=== PATIENT | female | born 1985 | race Caucasian/White ===

== ENCOUNTER → 2023-08-16 12:51 | Outpatient (CLI) | payer OTHER, SELFPAY ==
--- NOTE | ~2023-08-16 | US_ITS ---
Pelvic ultrasound. Clinical History: Pelvic pain Technique: Realtime transabdominal scanning of the pelvis was performed. Color flow Doppler and Doppl er spectral analysis were performed. Findings: The uterus is anteverted. The endometrial stripe has a thickness of 6 mm. No focal mass is identified. The right ovary measures 3.2 x 2.3 x 2.7 cm. No significant right ovarian or adnexal mass is seen. The left ovary measures 3.9 x 2.9 x 2.8 cm. No significant left ovarian or adnexal mass is seen. There is no evidence of free fluid in the cul de sac. Impression: No significant abnormality seen. Reviewed, dictated and finalized at location . ER DRIVER Impression: No significant abnormality seen.
== END ==
PROVIDERS: PCP Nurse Practitioner; Visit Provider Nurse Practitioner
DX: R10.2 Pelvic and perineal pain (principal)
CPT/HCPCS: 76856

== ENCOUNTER 2023-10-01 00:38 | Day surgery (SDC) | payer OTHER, SELFPAY ==
[2023-09-11 11:51] VITALS: BMI 47.2
--- NOTE | 2023-09-11 11:55 | PC.NURSE ---
Addendum entered by Gardenia Weber RN 09/26/23 14:27: PT TO ARRIVE AT 1245 ON 10/01/23 FOR SURGERY AT 1445. Original Note: Report to the Outpatient Waiting Room, entrance under the green pavilion located off [facility], at time 0745 on date 09/17/23. Planned Procedure Time: 0945. Time changes happen often and if your time is changed the preop area will call you the afternoon before. - You and your visitor will be asked to self-screen and do not enter if you have any COVID symptoms. - A mask is optional within the hospital at this time. Patients may have clear liquids (water, carbonated beverages, clear teas, apple juice) until 3 hours prior to surgery with a maximum of 20 ounces. - No food from midnight until time of surgery Take the following medications with a SIP of water the morning of surgery: NONE DO NOT STOP ANY OF YOUR OTHER PRESCRIPTION MEDICATIONS PRIOR TO SURGERY ?EXCEPT THE FOLLOWING Medications to discontinue per physician: N/A Date to take last dose: N/A Please no make-up, nail divehi, hairspray, perfume, deodorant, or body powder the day of surgery. No jewelry (including any body piercings) or valuables the day of surgery, leave them at home. Please take a shower or bath the night before, or the morning of, surgery with an antibacterial soap. Wear comfortable, loose fitting clothing. - Jewelry must be removed prior to entering the operating room. Rings and piercings that are not removed may be cut off. - The hospital will not accept responsibility for valuables. - Please leave all valuables, including medications, at home the day of surgery. If you are going home after surgery, a licensed route driver must drive you home. - NO public transportation without another adult if you receive anesthesia. - We recommend that an adult stay with you for 24 hours following discharge. - We also recommend that you do not drive, make important decision, drink alcoholic beverages, or take any drugs that were not prescribed by your health care provider for at least 24 hours after your discharge time. Follow any additional instructions given to you from your surgeon. If you or anyone in your household have experienced Covid symptoms in the past week, please notify your surgeon or the nurse liaison at the phone number below for possible testing. Telephone instructions given to HANDY TORRES and asked if any additional questions and then verbalized understanding. Patient advised to call surgeon office or pre surgery nurse liaison [phone] if any additional questions.
--- NOTE | 2023-09-17 07:28 | WPDHPUPDATE1 ---
History and Physical Update Update Date/Time: 09/17/23 07:28 History and Physical has been reviewed, including an updated exam of the patient. There are NO changes in the patient's condition. Risks, benefits, and alternatives have been discussed and questions answered. Patient agrees to proceed with procedure.
--- NOTE | 2023-09-17 07:28 | PM.HPGS ---
History of Present Illness History of Present Illness Consent: Risks, benefits, and alternatives have been discussed and questions answered. Patient agrees to proceed with procedure. Chief complaint: menorrhagia Narrative: The patient is a 37-year-old with heavy but regular cycles. Pelvic ultrasound and labs were normal. It was recommended to undergo D&C hysteroscopy for further evaluation. Risks of infection, bleeding, perforation, and possible pathology are discussed. Patient voices understanding and agrees to proceed. Review of Systems Review of Systems: not repeated day of surgery; patient states no changes in status [facility] Past Medical History Medical History (Updated 09/17/23 @ 07:31 by Sharlene Martin MD) Migraines PCOS (polycystic ovarian syndrome) Social History Social History Smoking status: Never smoker Alcohol intake: never Substance use: never Substance use type: does not use Living arrangements: with family Spiritual care concerns: No Meds Home Medications and Allergies Home Medications Medication Instructions Recorded Confirmed Type ergocalciferol (vitamin D2) 1,250 1,250 mcg PO 2XW 09/11/23 09/11/23 History mcg (50,000 unit) capsule metformin 500 mg tablet,extended 1,000 mg PO BID 09/11/23 09/11/23 History release 24 hr Allergies Allergy/AdvReac Type Severity Reaction Status Date / Time Penicillins AdvReac Unknown Nausea and Verified 09/11/23 11:50 Vomiting, Headaches Exam Const: General: healthy appearing, alert and obese ( BMI 47.8) Orientation/consciousness: patient oriented x3 Resp: Effort & Inspection: normal respiratory effort GI: GI Palp: Yes Soft to palpation, No Tenderness to palpation present (GI) and No Palpable mass present : External Female Exam: normal external appearance Speculum Exam - Vagina: normal appearance of the vagina and normal vaginal discharge Speculum Exam - Cervix: normal appearance of the cervix Bimanual exam- vagina & uterus: uterine size normal and consistency normal Bimanual Exam- Adnexa, other: normal adnexae and No adnexal tenderness Neuro: General: patient oriented x3 Assessment and Plan Assessment and plan (1) Menorrhagia: Code(s): N92.0 - Excessive and frequent menstruation with regular cycle Status: Acute Assessment and Plan: plan to proceed with D&C hysteroscopy
--- NOTE | 2023-09-26 14:30 | PC.NURSE ---
Pt states no changes in medications or health history since initial interview. New pre-op instructions reviewed with pt. Pt denies further questions at this time.
--- NOTE | 2023-10-01 09:11 | WPDHPUPDATE1 ---
History and Physical Update Update Date/Time: 10/01/23 09:11 History and Physical has been reviewed, including an updated exam of the patient. There are NO changes in the patient's condition. Risks, benefits, and alternatives have been discussed and questions answered. Patient agrees to proceed with procedure.
--- NOTE | 2023-10-01 09:11 | PM.HPGS ---
History of Present Illness History of Present Illness Consent: Risks, benefits, and alternatives have been discussed and questions answered. Patient agrees to proceed with procedure. Chief complaint: menorrhagia Narrative: Susy Cochran is a 37 year old female with menorrhagia. Pelvic ultrasound was normal. Labs revealed a normal hemoglobin and hematocrit. However, the patient's hemoglobin A1c was 5.9 on metformin. It was recommended to undergo D&C hysteroscopy for further evaluation. Risks of infection, bleeding, perforation, and possible pathology were discussed. Patient voices understanding and agrees to proceed. Review of Systems Review of Systems: not repeated day of surgery; patient states no changes in status PMF[facility] Past Medical History Medical History (Updated 10/01/23 @ 09:15 by Sharlene Martin MD) Migraines PCOS (polycystic ovarian syndrome) Most likely has converted to diabetes with hemoglobin A1c of 5.9 on metformin Social History Social History Smoking status: Never smoker Alcohol intake: never Substance use: never Substance use type: does not use Living arrangements: with family Spiritual care concerns: No Meds Home Medications and Allergies Home Medications Medication Instructions Recorded Confirmed Type ergocalciferol (vitamin D2) 1,250 1,250 mcg PO 2XW 09/11/23 09/26/23 History mcg (50,000 unit) capsule metformin 500 mg tablet,extended 1,000 mg PO BID 09/11/23 09/26/23 History release 24 hr Allergies Allergy/AdvReac Type Severity Reaction Status Date / Time Penicillins AdvReac Unknown Nausea and Verified 09/26/23 14:26 Vomiting, Headaches Exam Const: General: obese (BMI is 47.8) Orientation/consciousness: patient oriented x3 Resp: Effort & Inspection: normal respiratory effort : External Female Exam: normal external appearance Speculum Exam - Vagina: normal appearance of the vagina and normal vaginal discharge Speculum Exam - Cervix: normal appearance of the cervix Bimanual exam- vagina & uterus: uterine size normal and consistency normal Bimanual Exam- Adnexa, other: normal adnexae and No adnexal tenderness Neuro: General: patient oriented x3 Assessment and Plan Assessment and plan (1) Menorrhagia: Code(s): N92.0 - Excessive and frequent menstruation with regular cycle Status: Acute Assessment and Plan: plan to proceed with D&C hysteroscopy
[2023-10-01] MEDS: ACETAMINOPHEN 500 MG TABLET 1000 MG PO (12:52)
[2023-10-01 12:53] VITALS: BP 156/117; PULSE 87; RESP 20; TEMP 37.2; O2SAT 100
[2023-10-01 13:06] VITALS: BP 179/105
[2023-10-01] MEDS: LACTATED RINGERS 1,000 ML 30 ML IV CONT (13:10)
--- NOTE | 2023-10-01 13:16 | SUR.PREOP ---
1314-Dr. Ramos aware of pt's B/P readings-no orders received.
--- NOTE | 2023-10-01 13:24 | WPDANESEPPF ---
Anes - Initial Pre Proc Eval Procedure: Operation Date: 10/01/23 14:45 Proposed Procedures p Hysteroscopy Dilation and Curettage - Sharlene Martin MD Date/Time: 10/01/23 13:24 Surgeon: Sharlene Martin MD Pre Op Diagnosis: menorrhagia Patient Data Age: 37 Gender: F Height: 1.63 m Weight: 125.4 kg Last Vital Signs Temp 37.2 C 10/01/23 12:53 Pulse 87 10/01/23 12:53 Resp 20 10/01/23 12:53 BP 179/105 H 10/01/23 13:06 Pulse Ox 100 10/01/23 12:53 O2 Del Method Room Air 10/01/23 12:53 Allergies Allergy/AdvReac Type Severity Reaction Status Date / Time Penicillins AdvReac Unknown Nausea and Verified 10/01/23 12:49 Vomiting, Headaches Home Medications Medication Instructions Recorded Confirmed Type ergocalciferol (vitamin D2) 1,250 1,250 mcg PO 2XW 09/11/23 10/01/23 History mcg (50,000 unit) capsule metformin 500 mg tablet,extended 1,000 mg PO BID 09/11/23 10/01/23 History release 24 hr Patient hx anesthesia problems: none Family hx anesthesia problems: none Results Review: All pre-operative results and documents have been reviewed as part of the pre-operative evaluation. 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 with hemoglobin A1c of 5.9 on metformin Social History Social History Smoking status: Never smoker Alcohol intake: never Substance use: never Substance use type: does not use Living arrangements: with family Spiritual care concerns: No Anes - Eval Final PreProcedure Day of Procedure 10/01/23 13:24 Patient weight: morbidly obese Heart: regular rate and rhythm Lungs: clear to auscultation Airway: Mallampati scale class II Neurological: alert and oriented Last oral intake: >/= 8 hours ASA classification: III Emergent: no Anesthetic plan: proceed Anesthesia type and monitoring: general GIVS and standard monitoring Results Review: All pre-operative results and documents have been reviewed as part of the pre-operative evaluation. Informed Consent: The patient's anesthetic plan and its attendant risks and benefits were discussed with the patient/family/POA. Questions were solicited and answers provided to the satisfaction of the patient/family/POA.
[2023-10-01] MEDS: KETOROLAC 15 MG/ML VIAL (*BKC) IV PUSH (13:37)
--- NOTE | 2023-10-01 13:53 | W.PM.PROC2 ---
Procedure Note - Detailed Date of Procedure 10/01/23 Pre-op Diagnosis menorrhagia Post-op Diagnosis Same Procedure Performed D&C hysteroscopy Surgeon Sharlene Martin MD Anesthesia MAC Findings uterus sounds to 10cm and appears secretory Description of Procedure The patient is taken to the operating room and placed under anesthesia in the dorsal lithotomy position. She was prepped and draped in usual sterile fashion. [place] speculum was placed in the vagina and the cervix grasped on the anterior lip with a tenaculum. The uterus is sounded to 10cm. The diagnostic hysteroscope was placed and with no discrete lesions the hysteroscope was removed. The sharp OO curette was used to curette the endometrium until a good uterine cry was noted in all areas. All instruments are removed. Sponge, needle, and instrument counts are correct per the OR staff. The patient was awakened from anesthesia and taken to recovery in stable condition. Estimated Blood Loss 5 Drains No Packing No Pathology Yes ( Endometrial curetting) Complications No immediate complications Condition Stable Disposition PACU
[2023-10-01 13:58] VITALS: BP 166/119; PULSE 82; O2SAT 94
[2023-10-01 14:25] VITALS: BP 160/107; PULSE 81; O2SAT 99
[2023-10-01 14:55] VITALS: BP 124/81; PULSE 80
[2023-10-01 15:25] VITALS: BP 138/85; PULSE 80
== END 2023-10-01 15:45 | disposition home or self-care (01) ==
PROVIDERS: PCP Registered Nurse; Visit Provider Obstetrics & Gynecology Gynecology
PROC: 0U5B8ZZ Destruction of Endometrium, Via Natural or Artificial Opening Endoscopic (ICD-10-PCS; CPT 58563; principal; 2023-10-01 14:45)
DX: N92.0 Excessive and frequent menstruation with regular cycle (principal); N85.8 Other specified noninflammatory disorders of uterus; E28.2 Polycystic ovarian syndrome; E66.01 Morbid (severe) obesity due to excess calories; Z68.42 Body mass index [BMI] 45.0-49.9, adult; Z79.84 Long term (current) use of oral hypoglycemic drugs
CPT/HCPCS: 58558; 88305; A9270; J0360; J1100; J1885; J2250; J2405; J2704; J7120

== ENCOUNTER 2024-07-17 14:11 | Outpatient (CLI) | payer OTHER, SELFPAY ==
--- NOTE | ~2024-07-17 | US_ITS ---
EXAMINATION: US venous doppler [facility] DATE: 07/17/2024 14:48 INDICATION: Left leg pain and swelling TECHNIQUE: Grayscale ultrasound images without and with compression and Doppler ultrasound images of the left lower extremity veins were obtained. COMPARISON: None. FINDINGS: Noncompressibility and absence of flow within the left common femoral, femoral, and popliteal veins Noncompressibility and absence of flow within the left gastrocnemius vein, peroneal vein and posterio r tibial vein. Greater saphenous vein outflow is visualized IMPRESSION: Extensive left lower extremity deep venous thrombosis, as detailed above. These findings will be given to the patient's referring clinician to determine disposition Reviewed, dictated and finalized at location [facility] [employer]
== END 2024-07-17 14:12 | disposition home or self-care (01) ==
PROVIDERS: PCP Registered Nurse; Visit Provider Registered Nurse
DX: M25.472 Effusion, left ankle (principal); I82.412 Acute embolism and thrombosis of left femoral vein; I82.432 Acute embolism and thrombosis of left popliteal vein; I82.462 Acute embolism and thrombosis of left calf muscular vein; I82.452 Acute embolism and thrombosis of left peroneal vein; I82.442 Acute embolism and thrombosis of left tibial vein
CPT/HCPCS: 93971

== ENCOUNTER 2024-07-17 18:07 | Emergency (ER) | payer OTHER, SELFPAY ==
[2024-07-17 18:12] VITALS: BP 166/100; PULSE 102; RESP 16; TEMP 36.3; O2SAT 99
== END 2024-07-17 18:40 | disposition left against medical advice (07) ==
PROVIDERS: PCP Registered Nurse
DX: I74.9 Embolism and thrombosis of unspecified artery (principal)
CPT/HCPCS: 99199

== ENCOUNTER 2024-12-20 19:02 | Emergency (ER) | payer OTHER, SELFPAY ==
--- NOTE | 2024-12-20 19:03 | ED_ITS ---
HPI - Skin/Abscess/Foreign Bdy General Chief complaint: Skin/Abscess/Foreign Body Stated complaint: rash on hand Time Seen by Provider: 12/20/24 19:02 Source: patient Mode of arrival: ambulatory Limitations: no limitations History of Present Illness HPI narrative: Susy is a 39-year-old female patient presenting to the clinic today with complaints of rash on her right hand, left wrist, and on the left abdomen. She reports symptoms started yesterday. States she was cleaning out a storage shed getting some close and found wasps nest. Is unsure if she was stung but has a itchy red rash that jones when she scratches it. Related Data Home Medications ?Medication ?Instructions ?Recorded ?Confirmed ?Last Taken ?Type ergocalciferol (vitamin D2) 1,250 1,250 mcg PO 2XW 09/11/23 10/01/23 09/27/23 History mcg (50,000 unit) capsule metformin 500 mg tablet,extended 1,000 mg PO BID 09/11/23 10/01/23 09/30/23 History release 24 hr amlodipine 5 mg tablet mg 12/20/24 Unknown History apixaban 5 mg tablet (Eliquis) mg 12/20/24 Unknown History hydrochlorothiazide 25 mg tablet mg 12/20/24 Unknown History norethindrone 1 mg-ethinyl tablet 12/20/24 Unknown History estradiol 20 mcg (24)-iron 75 mg (4) tablet (Aurovela 24 Fe) Allergies Allergy/AdvReac Type Severity Reaction Status Date / Time Penicillins AdvReac Unknown Nausea and Verified 12/20/24 19:20 Vomiting, Headaches Review of Systems Review of Systems: Pertinent positives per HPI. Patient denies any fever, chills, headache, visual changes, dizziness, cough, runny nose, sore throat, shortness of breath, chest pain, palpitations, nausea, vomiting, diarrhea, constipation, abdominal pain, or any urinary issues. [facility] Past Medical History Medical History Morbid obesity PCOS (polycystic ovarian syndrome) Most likely has converted to diabetes with hemoglobin A1c of 5.9 on metformin Migraines Social History Social History Smoking status: Never smoker Alcohol intake: never Substance use: never Substance use type: does not use Living arrangements: with family Spiritual care concerns: No Comments At the time of my signature, I reviewed and agree with the nursing past medical, surgical, social, and family history. There is no relevant family history pertinent to the patient complaint. Exam Narrative: General: Well-developed, morbidly obese, in no apparent distress Head: Normocephalic, atraumatic. Cardio: Regular rate and rhythm, s1 and s2 normal, no murmur appreciated. Resp: Clear to auscultation bilaterally, no rhonchi, rales, wheezing or rubs. Integumentary: [place], warm, and dry, red, raised, itchy, scaly, blister-like rash to the right hand, left wrist, and left abdomen. Course Course Emergency Course: Portions of this record may have been created with voice recognition software. Level of Care: Express Care Visit Vital Signs Vital signs: Vital Signs Temperature 36.3 C L 12/20/24 19:12 Pulse Rate 68 12/20/24 19:12 Respiratory Rate 18 12/20/24 19:12 Blood Pressure 124/84 12/20/24 19:12 Pulse Oximetry 100 12/20/24 19:12 Oxygen Delivery Room Air 12/20/24 19:12 Temperature 36.3 C L 12/20/24 19:12 Pulse Rate 68 12/20/24 19:12 Respiratory Rate 18 12/20/24 19:12 Blood Pressure 124/84 12/20/24 19:12 Pulse Oximetry 100 12/20/24 19:12 Oxygen Delivery Room Air 12/20/24 19:12 Vital signs reviewed MDM - Skin/Abscess/Foreign Bdy MDM Narrative Medical decision making narrative: At the time of visit patient is resting comfortably on the exam table. Patient appears to be nontoxic. Plan: I suspect patient has dermatitis. Prescription for triamcinolone cream was sent to the pharmacy. Supportive measures were discussed with the patient and they voiced understanding discharge instructions and agrees to treatment plan. Return precautions reviewed Differential Diagnosis Differential diagnosis: Likely abscess of skin or subcutaneous tissue, viral exanthem, dermatophytosis, urticaria, herpes zoster, allergic reaction to drug, cellulitis, eczema, insect bites, impetigo and contact dermatitis Discharge Plan Discharge Clinical Impression: Dermatitis Patient Disposition: Home Condition: Stable Instructions: Antibiotic Form, Dermatitis (ED) Additional Instructions: Apply triamcinolone cream as directed Avoid hot showers Moisturize skin twice daily using a non scented moisturizer such as Lubriderm, Aquaphor, or Cetaphil Avoid scratching as this can cause a secondary infection May take benadryl 25-50mg every 6 hours as needed for itching Follow up with your PCP in 3-5 days if symptoms persist or sooner if they worsen Go to the Emergency Room if symptoms worsen- fever, rash spreading with treatment, shortness of breath, tongue swelling, drooling, or chest pain Patient Language: [place] Prescriptions: New triamcinolone acetonide 0.1 % cream 1 applic topical BID 7 Days Qty: 30 0RF No Action amlodipine 5 mg tablet hydrochlorothiazide 25 mg tablet Aurovela 24 Fe 1 mg-20 mcg (24)/75 mg (4) tablet Eliquis 5 mg tablet ergocalciferol (vitamin D2) 1,250 mcg (50,000 unit) capsule 1,250 mcg PO 2XW Patient Comments: PT TAKES ON SUNDAY AND SUNDAY metformin 500 mg tablet extended release 24 hr 1,000 mg PO BID Follow-up/Referrals: Imani,SADI Reeder [Primary Care Provider] - Time of Disposition: 19:21 Quality NIHSS Nursing Documentation ED NIHSS nursing documentation: reviewed/agree
--- OUTSIDE RECORDS SUMMARY | 2024-12-20 19:05 | XMS_ITS | Clinical Summary ---
Author Organization [facility] Address [address] [place] [address] Care Team Providers Care Screen Printing Loader Unloader Name Role Phone Lilli Diallo Primary Care Provider [phone] Allergies Active Allergy Reactions Criticality Noted Date Comments Penicillins Hives,Headache 05/01/2019 Medications metFORMIN ER 500 MG 24 hr tablet Take 2 tablets (1,000 mg total) by mouth 2 (two) times daily. 1 Active vitamin D2, ergocalciferol, 02381 UNITS capsule 2 Active hydroCHLOROthiazi de (HYDRODIURIL) 25 MG tabletIndications :Primary hypertension Take 1 tablet (25 mg total) by mouth every morning. 90 tablet 3 4 Active amLODIPine (NORVASC) 5 MG tabletIndications :Primary hypertension Take 1 tablet (5 mg total) by mouth daily. 90 tablet 3 4 Active tirzepatide-weigh t management (ZEPBOUND) 2.5 mg/0.5 mL injectionIndicati ons:Weight Loss Inject 2.5 mg into the skin every 7 days. Indications: Weight Loss Dispense as vial only 2 mL 5 5 Active apixaban (ELIQUIS) 5 MG tabletIndications :DVT of deep femoral vein, left ([facility] H[facility]/HCC) Take 1 tablet (5 mg) twice daily 60 tablet 1 5 Active Active Problems Problem Noted Date Diagnosed Date Acute pulmonary embolism ([facility] HHS/HCC) 07/18 Assessment & Plan (08/25/2024 3:32 PM TAX ANALYST): Continue anticoagulation and follow-up with hematology. No cardiovascular needs needed at this time. Vitamin D deficiency 10/15/2020 High blood pressure 03/23/2014 PCOS (polycystic ovarian syndrome) BMI 45.0-49.9, adult Assessment & Plan (08/25/2024 3:32 PM TAX ANALYST): She is morbidly obese with a Body mass index is 46.35 kg/m . She was educated on lifestyle modifications including diet and exercise. Immunizations Immunization Administration Dates Next Due Influenza Adult (Generic) 07/13/2022,06/21/2021 Tdap (Generic) 06/21/2021,09/01/2017 Family History Medical History Relation Comments CHF Father Hypertension Father Colon Cancer Maternal Grandfather Cancer Maternal Grandmother melanoma Hypertension Mother blood clot Mother Lung Cancer Paternal Grandfather Hypertension Sister Relation Status Comments Father Alive Maternal Grandfather Maternal Grandmother Mother Alive Paternal Grandfather Sister Alive Social History Tobacco Use Types Packs/Day Years Used Date Smoking Tobacco: Never Smokeless Tobacco: Never Tobacco Cessation:Counseling Given: Not Answered Alcohol Use Standard Drinks/Week Comments No 0 (1 standard drink = 0.6 oz pur e alcohol) [facility] Utilities Answer Date Recorded In the past 12 months has [facility] [employer], gas, oil, or water Combatant Gentlemen threatened to shut off services in your home? No 07/18/2024 Humiliation, Afraid, Rape, and Kick questionnair e Answer Date Recorded Within the last year, have y ou been afraid of your partner or ex-partner? No 07/18/2024 Within the last year, have y ou been humiliated or emotionally abused in other ways by your partner or ex-partner? No Within the last year, have y ou been kicked, hit, slapped, or otherwise physically hurt by your partner or ex-partner? No 07/18/2024 Within the last year, have y ou been raped or forced to have any kind of sexual activity by your partner or ex-partner? No 07/18/2024 AUDIT-C Answer Date Recorded Frequency of Alcohol Consumption Never 05/01/2019 Average Number of Drinks Not on file 019 Frequency of Binge Drinking Not on file 12/2018 Overall Financial Resource Strain (CARDIA) Answe r Date Recorded How hard is it for you to pa y for the very basics like food, housing, medical care, and heating? Not hard at all 07/18/2024 PHQ-2 Answer Date Recorded Patient Health Questionnaire-2 Score 2 07/17/2024 Hunger Vital Sign Answer Date Recorded Within the past 12 months, y ou worried that your food would run out before you got the money to buy more. Never true 07/18/20 24 Within the past 12 months, t he food you bought just didn't last and you didn't have money to get more. Never true 07/18/2024 PRAPARE - Transportation Answer Date Re corded In the past 12 months, has l ack of transportation kept you from medical appointments or from getting medications? No 06/28 In the past 12 months, has l ack of transportation kept you from meetings, work, or from getting things needed for daily living? No 07/18/2024 Housing Stability Vital Sign Answer Elias e Recorded In the last 12 months, was t here a time when you were not able to pay the mortgage or rent on time? No 07/18/2024 In the past 12 months, how m any times have you moved where you were living? 0 07/18/2024 At any time in the past 12 m [facility], were you homeless or living in a halfway (including now)? No 07/18/2024 Comments No Sex and Gender Information Value Date Recorded Sex Assigned at Not on file Legal Sex Female 12:13 PM TAX ANALYST Gender Identity Not on file Sexual Orientation Not on file Last Filed Vital Signs Vital Sign Reading Time Taken Comments Blood Pressure 130/86 08/15/2024 9:49 AM TAX ANALYST Pulse 98 08/15/2024 9:49 AM TAX ANALYST Temperature 36.7 C (98 F) 07/23/2024 11:18 AM TAX ANALYST Respiratory Rate 16 07/23/2024 11:18 AM TAX ANALYST Oxygen Saturation 99% 07/23/2024 11:18 AM TAX ANALYST Inhaled Oxygen Concentration - - Weight 122.5 kg (270 lb) 08/15/2024 9:49 AM TAX ANALYST Height 162.6 cm (5' 4 ) 08/15/2024 9:49 AM TAX ANALYST Body Mass Index 46.35 08/15/2024 9:49 AM TAX ANALYST Plan of Treatment Health Maintenance Due Date Last Done Comments Cervical Cancer Screening Pa p Smear (Age 30 to 64) Every 3 Years 1985 Annual Physical 1988 Hepatitis B Vaccines (1 of 3 - 19+ 3-dose series) 2004 Pneumococcal Vaccine: Pediatrics (0 to 5 Years) and At-Risk Patients (6 to 49 Years) (1 of 2 - PCV) 2004 Cervical Cancer Screening Pa p with HPV Testing (Age 30 to 64) Every 5 Years 11/08/2015 Cervical Cancer Screening with HPV 11/08/2015 PHQ-2 (Physician [place]) 08/27/2024 07/17/2024 COVID-19 Vaccine ( - 2023-2 5 season) 2025 01/17/2021, 12/15/2020 Postponed from 04/27/2024 (Patient Refused) DTaP, Tdap and Td Vaccines ( 3 - Td or Tdap) 06/21/2031 06/21/2021, 09/01/2017 Hepatitis C Completed 10/18/2020 HPV Vaccines Aged Out No longer eligi ble based on patient's age to complete this topic Meningococcal B Vaccine Aged Out No l onger eligible based on patient's age to complete this topic Meningococcal Vaccine Aged Out No mary carlitos eligible based on patient's age to complete this topic RSV Immunizations Under 20 Months Aged Out No longer eligible b ased on patient's age to complete this topic Procedures Procedure Name Priority Date/Time Associated Diagnosis Comments HEPATITIS C ANTIBODY 10/18/2020 1:14 PM TAX ANALYST from Last 3 Months or Most Recently Relevant to Health Maintenance Results * HEPATITIS C ANTIBODY (10/18/2020 1:14 PM TAX ANALYST) HEPATITIS C AB <0.1 0.0 - 0.9 s/co ratio [facility] 1 Comment: Negative: < 0.8 Indeterminate: 0.8 - 0.9 Positive: > 0.9 The CDC recommends that a positive HCV antibody result be followed up with a HCV Nucleic Acid Amplification test (450300). 10/18/2020 1:14 PM TAX ANALYST 10/18/2020 Narrative [facility] - 10/19/2020 9:10 AM TAX ANALYST Performed at: 01 - [facility] [address] [id number] Spotter Driver: Ger Skaggs PhD, Phone: [phone] [facility] Final Resul t [facility] [address] [place] [address] [facility] 1 from Last 3 Months or Most Recently Relevant to Health Maintenance Insurance CIG Advance Directives * Full Code (Latest Code Status on File) Date Activated Date Inactivated Comments 07/18/2024 1:34 AM 07/19/2024 5:11 PM Care Teams Screen Printing Loader Unloader Relationship Specialty Start Date End Date Lilli Diallo APNP [address] [place] [id number] PCP - General NURSE PRACTITIONER 10/15/20
--- OUTSIDE RECORDS SUMMARY | 2024-12-20 19:05 | XMS_ITS | Clinical Summary ---
Author Organization [facility] Address [address] [facility] [place] [address] Phone Care Team Providers Care Brim Blocker Name Role Phone Radha Wei MD Primary Care Provider Unavailab le Allergies Active Allergy Reactions Criticality Noted Date Comments Penicillins Nausea and Vomiting Low 11/24/2013 Medications No known medications Active Problems Problem Noted Date Diagnosed Date High blood pressure 03/23/2014 History of UTI 03/23/2014 Edema 03/23/2014 Morbid obesity with BMI of 50.0-59.9, adult 02/25 Family History Medical History Relation Name Comments Heart Disease Father Hypertension Father Cancer Maternal Grandfather colon a t age 59 Cancer Maternal Grandmother Hypertension Mother Cancer Paternal Grandfather Healthy Paternal Grandmother Relation Name Status Comments Father Alive Maternal Grandfather Maternal Grandmother Mother Alive Paternal Grandfather Paternal Grandmother Alive Social History Tobacco Use Types Packs/Day Years Used Date Smoking Tobacco: Never Alcohol Use Standard Drinks/Week Comments No 0 (1 standard drink = 0.6 oz pur e alcohol) Comments No Sex and Gender Information Value Date Recorded Sex Assigned at Not on file Legal Sex Female 3:20 AM CORPORATE TRAVEL AGENT Gender Identity Not on file Sexual Orientation Not on file Occupation Industry Job Start Date Job End Date Not on file Not on file Not on file Not on file Last Filed Vital Signs Vital Sign Reading Time Taken Comments Blood Pressure 124/86 09/11/2017 8:25 AM CORPORATE TRAVEL AGENT Pulse 89 09/11/2017 8:25 AM CORPORATE TRAVEL AGENT Temperature 36.6 C (97.9 F) 09/11/2017 8:25 AM CORPORATE TRAVEL AGENT Respiratory Rate 16 03/23/2014 9:58 AM CDT Oxygen Saturation 96% 09/11/2017 8:25 AM CORPORATE TRAVEL AGENT Inhaled Oxygen Concentration - - Weight 123.4 kg (272 lb) 09/11/2017 8:25 AM CORPORATE TRAVEL AGENT Height 160 cm (5' 3 ) 09/11/2017 8:25 AM CORPORATE TRAVEL AGENT Body Mass Index 48.18 09/11/2017 8:25 AM CORPORATE TRAVEL AGENT Plan of Treatment Health Maintenance Due Date Last Done Comments DTAP/TDAP/TD VACCINES (1 - Tdap) 2004 HEPATITIS B VACCINES (1 of 3 - 19+ 3-dose series) 2004 HPV/Cotest (21-29) 2006 CERVICAL CANCER SCREENING 11/08/2015 HPV/Cotest (30-65) 11/08/2015 PAP SMEAR 11/08/2015 INFLUENZA VACCINE (#1) 2024 HPV VACCINES Aged Out No longer eligi ble based on patient's age to complete this topic Care Teams Brim Blocker Relationship Specialty Start Date End Date Radha Wei MD PCP - General Family Practice 11/26/12
--- OUTSIDE RECORDS SUMMARY | 2024-12-20 19:05 | XMS_ITS | Clinical Summary ---
Author Organization [facility] Address [address], [facility] [address] [place] [address] Phone Care Team Providers Care Supervisor Welding Equipment Repairer Name Role Phone Lilli Diallo APRN, [place] Primary Care Provider + Ronny Strauss MD Unavailable [phone] Allergies Active Allergy Reactions Criticality Noted Date Comments Penicillins Other (see Comments),Hives Low 11/25/19 14 Medications apixaban (ELIQUIS) 5 MG Tablet Take 2 tablets (10 mg) twice daily for 7 days, then change to one tablet (5 mg) twice daily 4 Active ergocalciferol (VITAMIN D) 21401 UNIT Capsule take 1 capsule by mouth weekly Active metFORMIN (GLUCOPHAGE-XR) 500 MG TABLET SR 24 HR Take 500 mg by mouth 2 times daily. Active hydroCHLOROthia zide 25 MG Tablet Take 25 mg by mouth every morning. 4 Active amLODIPine (NORVASC) 5 MG Tablet Take 5 mg by mouth daily. 4 Active tirzepatide-mikal ght management (Zepbound) 2.5 MG/0.5ML Solution Auto-injector 2.5 mg by Subcutaneous route once a week. 4 Active Active Problems Problem Noted Date Diagnosed Date HTN (hypertension) 08/13/2024 Immunizations Immunization Administration Dates Next Due Influenza Vaccine, MDCK,quadrivalent, pres free 07/13/2022 Influenza Vaccine, Quadrivalent, PF 06/21/2021 Family History Medical History Relation Name Comments Congestive Heart Failure Father Hypertension Father Clotting Disorder Mother Hypertension Mother Congestive Heart Failure Sister Heart Disease Sister Skin Cancer Sister Relation Name Status Comments Father Mother Sister Social History Tobacco Use Types Packs/Day Years Used Date Smoking Tobacco: Never Smokeless Tobacco: Never Tobacco Cessation:Counseling Given: Not Answered Alcohol Use Standard Drinks/Week Comments Not Currently 0 (1 standard drink = 0.6 oz pur e alcohol) Comments Unknown Sex and Gender Information Value Date Recorded Sex Assigned at Not on file Legal Sex Female 2:33 PM ACCOUNTS RECEIVABLE EXECUTIVE Gender Identity Not on file Sexual Orientation Not on file Last Filed Vital Signs Vital Sign Reading Time Taken Comments Blood Pressure 122/84 09/10/2024 11:03 AM ACCOUNTS RECEIVABLE EXECUTIVE Pulse 98 09/10/2024 11:03 AM ACCOUNTS RECEIVABLE EXECUTIVE Temperature 37 C (98.6 F) 09/10/2024 11:03 AM ACCOUNTS RECEIVABLE EXECUTIVE Respiratory Rate 18 09/10/2024 11:0 3 AM ACCOUNTS RECEIVABLE EXECUTIVE Oxygen Saturation 100% 09/10/2024 11: 03 AM ACCOUNTS RECEIVABLE EXECUTIVE Inhaled Oxygen Concentration - - Weight 119.2 kg (262 lb 12.8 oz) 2024 11:03 AM ACCOUNTS RECEIVABLE EXECUTIVE Height 162.6 cm (5' 4 ) 09/10/2024 11:0 3 AM ACCOUNTS RECEIVABLE EXECUTIVE Body Mass Index 45.11 09/10/2024 11:03 AM ACCOUNTS RECEIVABLE EXECUTIVE Plan of Treatment Upcoming Encounters Date Type Department Care Team (Late st Contact Info) Description 01/07/2025 10:45 AM CDT Office Visit [facility] [address] [phone] Ronny Strauss MD [address] [place] [phone] 01/07/2025 10:45 AM CDT Lab [facility] [address] [phone] Lab, [facility] Health Maintenance Due Date Last Done Comments Hepatitis B Immunization (1 of 3 - 19+ 3-dose series) 2004 Pap Smear 2006 Cervical Cancer Screening (CCS) 11/08/2015 HPV/Cotest 11/08/2015 Influenza Immunization (#1) 04/27/202406/27, 06/21/2021 SARS-COV-2 Immunization ( season) 2024 01/17/2021, 12/15/2020 Respiratory Syncytial Virus (RSV) Immunization (Adult) (1 - 1-dose 75+ series) 2060 Hepatitis C Virus (HCV) Screening Completed 10/18/2020 TdaP Immunization Completed 06/21/2021, 09/01/2017 Meningococcal Immunization (ACWY) Aged Out No longer eligible b ased on patient's age to complete this topic Pneumococcal Immunization Combined Aged Out No longer eligible b ased on patient's age to complete this topic Rotavirus Immunization Aged Out No lo nger eligible based on patient's age to complete this topic Insurance [employer] Care Teams Supervisor Welding Equipment Repairer Relationship Specialty Start Date End Date Lilli Diallo APRN, PASTING MACHINE OPERATOR [address] [place] [phone] PCP - General Family Medicine 08/07/24 Ronny Strauss MD [address] [place] [phone] Consulting Physician Oncology 08/07/24
--- OUTSIDE RECORDS SUMMARY | 2024-12-20 19:05 | XMS_ITS | Encounter Summary ---
Author Organization [facility] Address [address] [place] [address] Care Team Providers Care Quantitative Researcher Name Role Phone Radha Wei MD Primary Care Provider Unavailab le Encounter Details Date Type Department Care Team (Late st Contact Info) Description 07/17/2005 Outpatient Historical [facility] Primary Care - [address] [place] [phone] Ramiro Green, DO * Social History Tobacco Use Types Packs/Day Years Used Date Smoking Tobacco: Never Assessed Comments Unknown Sex and Gender Information Value Date Recorded Sex Assigned at Not on file Legal Sex Female 3:20 AM MATHEMATICS LECTURER Gender Identity Not on file Sexual Orientation Not on file documented as of this encounter Plan of Treatment Not on file documented as of this encounter Visit Diagnoses Not on filedocumented in this encounter Care Teams Quantitative Researcher Relationship Specialty Start Date End Date Radha Wei MD PCP - General Family Practice 11/26/12 documented as of this encounter
--- OUTSIDE RECORDS SUMMARY | 2024-12-20 19:05 | XMS_ITS | Encounter Summary ---
Author Organization [facility] Address [address] [place] [address] Care Team Providers Care Municipal Clerk Name Role Phone Radha Wei MD Primary Care Provider Unavailab le Encounter Details Date Type Department Care Team (Late st Contact Info) Description 10/18/2006 Outpatient Historical [facility] Primary Care - [address] [place] [phone] Ramiro Green, DO * Social History Tobacco Use Types Packs/Day Years Used Date Smoking Tobacco: Never Assessed Comments Unknown Sex and Gender Information Value Date Recorded Sex Assigned at Not on file Legal Sex Female 3:20 AM MEDICAL REPRESENTATIVE Gender Identity Not on file Sexual Orientation Not on file documented as of this encounter Plan of Treatment Not on file documented as of this encounter Visit Diagnoses Not on filedocumented in this encounter Care Teams Municipal Clerk Relationship Specialty Start Date End Date Radha Wei MD PCP - General Family Practice 11/26/12 documented as of this encounter
[2024-12-20 19:12] VITALS: BP 124/84; PULSE 68; RESP 18; TEMP 36.3; O2SAT 100
== END 2024-12-20 19:24 | disposition home or self-care (01) ==
PROVIDERS: Emergency Provider Nurse Practitioner Family; PCP Registered Nurse
DX: L30.9 Dermatitis, unspecified (principal); E28.2 Polycystic ovarian syndrome; E66.01 Morbid (severe) obesity due to excess calories; Z68.41 Body mass index [BMI] 40.0-44.9, adult
CPT/HCPCS: 99213; G0463